=== PATIENT | female | born 1985 | race Caucasian/White ===

== ENCOUNTER 2023-04-24 09:48 | Emergency (ER) | payer OTHER, SELFPAY ==
[2023-04-24 09:54] VITALS: BP 122/57; PULSE 84; RESP 14; TEMP 36.8; O2SAT 100; BMI 25.7
--- NOTE | 2023-04-24 09:58 | DI.RAD.S_ITS ---
PROCEDURE: XR ANKLE LT MIN 3V INDICATIONS: ankle and foot pain after injury TECHNIQUE: 3 views of the ankle were acquired. COMPARISON: None. FINDINGS: Bones: No fractures or dislocations. Ankle mortise is normally aligned. No suspicious bony lesions. Soft tissues: Mild lateral ankle soft tissue swelling is seen. No tibiotalar joint effusion. Achilles tendon appears normal. IMPRESSION: No acute ankle fracture or dislocation. Intact ankle mortise. Dictated by: Jaziel Morris M.D. on 04/24/2023 at 10:47 Approved by: Jaziel Morris M.D. on 04/24/2023 at 10:47
--- NOTE | 2023-04-24 09:58 | DI.RAD.S_ITS ---
PROCEDURE: XR FOOT LT MIN 3V INDICATIONS: ankle and foot pain after injury TECHNIQUE: 3 views of the foot were acquired. COMPARISON: None. FINDINGS: Bones: No fractures or dislocations. No suspicious bony lesions. Soft tissues: No tibiotalar joint effusion. Achilles tendon appears normal. IMPRESSION: No acute left foot fracture or dislocation. Dictated by: Jaziel Morris M.D. on 04/24/2023 at 10:46 Approved by: Jaziel Morris M.D. on 04/24/2023 at 10:47
--- NOTE | 2023-04-24 10:50 | ED.LOWEXIN ---
HPI - Extremity Injury (Lower) General Chief Complaint: Extremity Injury, Lower Stated Complaint: fell hurt LT ankle Time Seen by Provider: 04/24/23 10:18 Source: patient Mode of arrival: Wheelchair History of Present Illness HPI Narrative: 38-year-old female who this morning stepped awkwardly off of her porch and twisted her left ankle. Has had tingling in her left ankle had been unable to walk on it since that time. She did take some ibuprofen prior to arrival. Related Data Allergies Allergy/AdvReac Type Severity Reaction Status Date / Time cefazolin Allergy Verified 04/24/23 09:56 clindamycin Allergy Verified 04/24/23 09:56 sulfamethoxazole Allergy Verified 04/24/23 09:56 [From ] trimethoprim [From ] Allergy Verified 04/24/23 09:56 Review of Systems Musculoskeletal Musculoskeletal: Reports system reviewed and no additional complaints, except as documented Integumentary/Breasts Skin/Breast: Reports system reviewed and no additional complaints, except as documented Neurologic Neurologic: Reports system reviewed and no additional complaints, except as documented Hematologic/Lymphatic On Anticoagulants: No Patient History Social History Smoking Status: Unknown if ever smoked Smoking Status: Unknown if ever smoked alcohol intake frequency: holidays/special occasions only Substance Use Type: does not use Exam Initial Vital Signs Initial Vital Signs: Vital Signs Temperature 98.3 F 04/24/23 09:54 Pulse Rate 84 04/24/23 09:54 Respiratory Rate 14 04/24/23 09:54 Blood Pressure 122/57 L 04/24/23 09:54 Pulse Oximetry 100 04/24/23 09:54 Oxygen Delivery Method Room Air 04/24/23 09:54 Cardio Pulses: dorsalis pedis present on the left Skin General: no rashes or lesions noted Neuro Sensory Exam: no sensory deficits noted Extrem Other: No proximal fibula tenderness. Does have tenderness along the lateral malleolus and on the dorsum of the foot. No Lisfranc tenderness. No Achilles tenderness. Procedures Orthopedic Splinting/Casting Injury #1: Side: left Lower Extremity Injury Location: ankle Lower Extremity Immobilizer: Enrike wrap Other Orthopedic Equipment: crutches Post splinting neuro exam: intact Post splinting vascular exam: intact Placed by: Nursing Course Orders Ordered: ED Orders 04/24/23 09:58 XR ankle LT min 3V Stat XR foot LT min 3V Stat Vital Signs Vital signs: Vital Signs - 8 hr 04/24/23 09:54 Temperature 98.3 F Pulse Rate 84 Respiratory Rate 14 Blood Pressure 122/57 L Pulse Oximetry 100 Oxygen Delivery Method Room Air MDM - Extremity Injury (Lower) Imaging Data Extremity x-ray #1: Radiologist's Impression: PROCEDURE:? XR FOOT LT MIN 3V ? INDICATIONS:? ankle and foot pain after injury ? TECHNIQUE:? 3 views of the foot were acquired.? ? COMPARISON:? None. ? FINDINGS:? ? Bones:? No fractures or dislocations.? No suspicious bony lesions.? ? Soft tissues:? No tibiotalar joint effusion.? Achilles tendon appears normal.? ? ? IMPRESSION:? No acute left foot fracture or dislocation. Extremity x-ray #2: Radiologist's Impression: PROCEDURE:? XR ANKLE LT MIN 3V ? INDICATIONS:? ankle and foot pain after injury ? TECHNIQUE:? 3 views of the ankle were acquired.? ? COMPARISON:? None. ? FINDINGS:? ? Bones:? No fractures or dislocations.? Ankle mortise is normally aligned.? No suspicious bony lesions.? ? Soft tissues:? Mild lateral ankle soft tissue swelling is seen.? No tibiotalar joint effusion.? Achilles tendon appears normal.? ? ? IMPRESSION:? No acute ankle fracture or dislocation.? Intact ankle mortise. [facility] Narrative Medical decision making narrative: No fractures or dislocations noted on the x-ray his. Her physical exam was consistent with an ankle sprain. No indication for further radiologic studies. She was given an Enrike bandage and crutches for comfort. We discussed keeping things elevated. She was given return precautions. She expressed understanding and agreement. Discharge Plan Departure Patient Disposition: Home Clinical Impression: Ankle sprain and strain Instructions: DI for Ankle Sprain, How To Perform RICE (Rest, Ice, Compress, Elevate), How to Apply an Elastic Wrap on Ankle Activity Restrictions/Additional Instructions: There were no fractures noted on the x-rays so you can walk on your left foot/ankle as tolerated. You may need to use the crutches for the next day or so. Try to keep your ankle elevated as much as possible. Return to the emergency department for new symptoms. Referrals: Cook,Noris N, PA-C [Primary Care Provider] - Stand Alone Forms: Patient Portal/API
== END 2023-04-24 11:39 | disposition home or self-care (01) ==
PROVIDERS: Emergency Provider Emergency Medicine; PCP Physician Assistant
DX: S93.402A Sprain of unspecified ligament of left ankle, initial encounter (principal); S96.912A Strain of unspecified muscle and tendon at ankle and foot level, left foot, initial encounter; X50.1XXA Overexertion from prolonged static or awkward postures, initial encounter
CPT/HCPCS: 73610; 73630; 99283